=== PATIENT | female | born 1975 | race Hispanic/Latino ===

== ENCOUNTER 2018-04-27 07:50 | Observation (INO) | payer BC, OTHER ==
[~2018-04-27] VITALS: Ht 175.3 cm; Wt 62.0 kg
[2018-04-27 08:53] LABS: BASOPHILS % (AUTO) 0.1 % (0.0-5.0); EOSINOPHILS % (AUTO) 0.7 % (0.0-8.0); HEMATOCRIT 36.2 % (36-48); LYMPHOCYTES % (AUTO) 14.3 % (21.0-51.0); MEAN CORPUSCULAR HEMOGLOBIN 31.1 pg (27.0-33.0); MEAN CORPUSCULAR VOLUME 94.2 fL (79-99); MONOCYTES % (AUTO) 6.4 % (3.0-13.0); NEUTROPHILS % (AUTO) 78.5 % (40.0-77.0); NUCLEATED RED BLOOD CELLS 0.1 % (0.0-0.19); PLATELET COUNT (AUTO) 247 K/uL (130-400); RED BLOOD CELL COUNT(AUTO) 3.84 MIL/uL (4.00-5.50); WHITE BLOOD COUNT (AUTO) 4.8 K/uL (4.8-10.8)
[2018-04-27 08:56] LABS: CREATININE 0.7 mg/dL (0.5-1.5); POTASSIUM 3.7 mmol/L (3.5-5.1)
[2018-04-27 09:01] LABS: INR 1.04 (0.85-1.15); PARTIAL THROMBOPLASTIN TIME 29.8 SEC (26.3-35.5); PROTHROMBIN TIME 10.9 SEC (9.6-11.6)
[2018-04-27 09:06] LABS: ALBUMIN 3.9 g/dL (3.5-5.0); BILIRUBIN,TOTAL 0.3 mg/dL (0.2-1.0); TOTAL PROTEIN, SERUM 7.5 g/dL (6.0-8.3)
[2018-04-27 10:07] LABS: APPEARANCE,URINE Clear (CLEAR); BILIRUBIN,URINE Negative (NEGATIVE); COLOR,URINE Yellow (YELLOW); GLUCOSE, URINE (UA) Negative (NEGATIVE); KETONES,URINE Negative (NEGATIVE); LEUKOCYTE ESTERASE ,URINE Negative (NEGATIVE); NITRATE,URINE Negative (NEGATIVE); OCCULT BLOOD,URINE Negative (NEGATIVE); PROTEIN,URINE Negative (NEGATIVE); UROBILINOGEN,URINE 0.2 mg/dL (0.2-1.0)
[2018-04-27 10:10] LABS: AMPHET/METH SCREEN,URINE NEGATIVE (NEGATIVE); BARBITURATE SCREEN, URINE NEGATIVE (NEGATIVE); BENZODIAZEPINES SCREEN,URINE NEGATIVE (NEGATIVE); CANNABINOID SCREEN,URINE NEGATIVE (NEGATIVE); COCAINE SCREEN,URINE NEGATIVE (NEGATIVE); OPIATE SCREEN,URINE NEGATIVE (NEGATIVE); PHENCYCLIDINE SCREEN,URINE NEGATIVE (NEGATIVE)
[2018-04-27] MEDS ORDERED: SODIUM CHLORIDE 0.9% 1000ML 1,000 ML IV SCH (12:34)
[2018-04-27] MEDS ORDERED: ONDANSETRON HCL 4 MG/2 ML VIAL IV PRN (12:45)
[2018-04-27] MEDS ORDERED: LACTULOSE 20 GM/30 ML UDCUP PO PRN (12:45)
[2018-04-27] MEDS ORDERED: ACETAMINOPHEN 325 MG TAB PO PRN ×3 (12:45→13:30)
[2018-04-27] MEDS ORDERED: HYDRALAZINE HCL 20 MG/ML VIAL IV PRN (12:45)
[2018-04-27] MEDS ORDERED: HYDROCODONE/ACETAMINOPHEN 5/325 MG TAB PO PRN (13:15)
[2018-04-27] MEDS ORDERED: ONDANSETRON HCL MDV 20ML 2 MG/ML VIAL IVP PRN (13:30)
[2018-04-27] MEDS ORDERED: MECLIZINE HCL 25 MG TABLET PO SCH (14:00)
[2018-04-27] MEDS ORDERED: FAMOTIDINE 20MG TAB 20 MG TAB ONE (14:02)
[2018-04-27] MEDS ORDERED: MECLIZINE HCL 25 MG TABLET ONE (14:02)
[2018-04-27] MEDS ORDERED: FE F1CAP33 PO (14:19)
[2018-04-27] MEDS ORDERED: CLOP75TA14 PO (14:19)
[2018-04-27 16:30] VITALS: BP 118/66
[2018-04-27] MEDS ORDERED: MECLIZINE HCL 25 MG TABLET PO PRN (18:00)
[2018-04-27] MEDS ORDERED: FAMOTIDINE 20MG TAB 20 MG TAB PO SCH (21:00)
[2018-04-27] MEDS ORDERED: FAMOTIDINE/PF 20 MG/2 ML VIAL IV SCH (21:00)
[2018-04-28] MEDS ORDERED: ENOXAPARIN SODIUM 40 MG/0.4 ML SYRINGE SQ SCH (09:00)
[2018-04-28] MEDS ORDERED: CLOPIDOGREL BISULFATE 75 MG TAB PO SCH (09:00)
[2018-04-28] MEDS ORDERED: ASPIRIN 325 MG TABLET PO SCH (09:00)
[2018-04-28] MEDS ORDERED: ENOXAPARIN SODIUM 30 MG/0.3 ML SQ SCH (09:00)
== END 2018-04-27 20:08 | disposition home or self-care (01) ==
LOC: EDH 07:50 → EDHIP 12:34 → 2AH 16:46
PROVIDERS: ADMIT Internal Medicine; ATTEND Internal Medicine
DX: R42 Dizziness and giddiness (principal); R51 Headache; N32.81 Overactive bladder; Z98.82 Breast implant status; Z88.0 Allergy status to penicillin; Z86.73 Personal history of transient ischemic attack (TIA), and cerebral infarction without residual deficits; Z79.899 Other long term (current) drug therapy
CPT/HCPCS: 36415; 70450; 70544; 70547; 70551; 71045; 80053; 80305; 81003; 82550; 82948; 83874; 84484; 85025; 85610; 85730; 93005 ×2; 97039; 97161; 99284; G0378 ×8; G8978; G8979; G8980; G8981; G8982; G8983

== ENCOUNTER 2022-01-24 01:30 | Emergency (ER) | payer BC ==
[~2022-01-24] VITALS: Ht 162.6 cm; Wt 58.1 kg
[~2022-01-24 01:30] MED LIST: CLOP75TA14 PO; FE F1CAP33 PO
[2022-01-24] MEDS ORDERED: DiphenhydrAMINE HCL 50 MG/ML VIAL IM ONE (02:00)
[2022-01-24] MEDS ORDERED: FAMOTIDINE 20MG TAB PO ONE (02:00)
[2022-01-24] MEDS ORDERED: SOLU-MEDROL 125MG VIAL IM ONE (02:00)
[2022-01-24] MEDS ORDERED: DIPH50 PO (02:07)
[2022-01-24] MEDS ORDERED: [UNRECOGNIZED DRUG - CODE] PO (02:07)
[2022-01-24] MEDS ORDERED: PRED50TA2 PO (02:07)
[2022-01-24] MEDS ORDERED: DiphenhydrAMINE HCL 50 MG/ML VIAL ONE (02:19)
[2022-01-24] MEDS ORDERED: SOLU-MEDROL 125MG VIAL ONE (02:19)
[2022-01-24] MEDS ORDERED: FAMOTIDINE 20MG TAB ONE (02:19)
[2022-01-24 02:40] VITALS: BP 123/67
== END 2022-01-24 02:41 | disposition home or self-care (01) ==
LOC: EDH 01:30
DX: T78.3XXA Angioneurotic edema, initial encounter (principal); Z88.0 Allergy status to penicillin; Z79.899 Other long term (current) drug therapy; Z98.890 Other specified postprocedural states
CPT/HCPCS: 99284; 96372 ×2; J1200; J2930

== ENCOUNTER 2023-01-05 11:03 | Emergency (ER) | payer OTHER, BC ==
[~2023-01-05] VITALS: Ht 162.6 cm; Wt 57.6 kg
[~2023-01-05 11:03] MED LIST changes: +CLOP-31 PO; -CLOP75TA14 PO; +DIPH50 PO; +PRED50TA2 PO; +[UNRECOGNIZED DRUG - CODE] PO
[2023-01-05] MEDS ORDERED: ACETAMINOPHEN 500 MG TABLET PO ONE (11:30)
[2023-01-05] MEDS ORDERED: TETANUS/DIPHTHERIA TOXOID [ADULT] 0.5 ML VIAL IM ONE (11:30)
[2023-01-05 11:39] VITALS: BP 117/70; PULSE 89; RESP 16; O2SAT 100
[2023-01-05] MEDS ORDERED: ACETAMINOPHEN 500 MG TABLET ONE (12:39)
== END 2023-01-05 13:09 | disposition home or self-care (01) ==
LOC: EDH 11:03
DX: T14.8XXA Other injury of unspecified body region, initial encounter (principal); S80.811A Abrasion, right lower leg, initial encounter; Z79.899 Other long term (current) drug therapy; Z98.890 Other specified postprocedural states; Z88.0 Allergy status to penicillin; X58.XXXA Exposure to other specified factors, initial encounter; Y93.89 Activity, other specified; Y92.89 Other specified places as the place of occurrence of the external cause; Y99.8 Other external cause status
CPT/HCPCS: 73590; 90471; 90714